=== PATIENT | male | born 1990 | race Caucasian/White ===

== ENCOUNTER 2016-06-05 06:13 | Day surgery (SDC) | payer OTHER ==
[2016-06-05] MEDS ORDERED: LACTATED RINGERS 1,000 ML ONE (06:29)
[2016-06-05] MEDS ORDERED: IV START KIT ONE ×2 (06:30→07:13)
[2016-06-05] MEDS ORDERED: PROPOFOL 60 ML IV ONE (07:05)
[2016-06-05] MEDS ORDERED: LACTATED RINGERS 1,000 ML IV SCH (07:45)
[2016-06-05 11:49] LABS: HELICOBACTER PYLORII DETECTION NEGATIVE (NEGATIVE)
--- NOTE | 2016-06-07 13:00 | SURGPATH ---
[facility] [address] [place] [id number] Patient Name: PB CHOU MR#: [id number] : 1990 Gender: M Specimen #: [id number] Collected: 06/05/2016 Received: 06/06/2016 Reported: 06/07/2016 Submitting Phys: TOMASA ALTAMIRANO Copy To Phys: DONATO GUNN [facility] Clinical History / Pre-Operative Diagnosis: Nausea; vomiting; diarrhea Specimen Source / Surgical Procedure Performed: #1-duodenal biopsy; #2-antral biopsy; #3-terminal ileum biopsy; #4-random colon biopsy Interpretation: 1. DUODENUM, BIOPSY: - SMALL BOWEL MUCOSA SHOWING NO DIAGNOSTIC ABNORMALITIES. - NO EVIDENCE OF SIGNIFICANT INFLAMMATION, VILLOUS BLUNTING, OR MALIGNANCY. 2. GASTRIC ANTRUM, BIOPSY: - GASTRIC MUCOSA SHOWING NO DIAGNOSTIC ABNORMALITIES. - NO MICROORGANISMS IDENTIFIED WITH ROUTINE STAINING. - NO EVIDENCE OF SIGNIFICANT INFLAMMATION, INTESTINAL METAPLASIA, OR MALIGNANCY. 3. TERMINAL ILEUM, BIOPSY: - SMALL BOWEL MUCOSA SHOWING NO DIAGNOSTIC ABNORMALITIES. - NO EVIDENCE OF SIGNIFICANT INFLAMMATION, VILLOUS BLUNTING, OR MALIGNANCY. 4. COLON, RANDOM, BIOPSY: - COLONIC MUCOSA SHOWING NO DIAGNOSTIC ABNORMALITIES. - NO EVIDENCE OF SIGNIFICANT INFLAMMATION OR MALIGNANCY. Electronically Signed Out Demarco Vargas M.D., Ph.D. Gross Description: #1 The specimen is received in a formalin filled container labeled with the patient's name and "duodenal biopsy". Two hollis biopsies are 0.3 and 0.4 cm. Totally embedded in cassette #1. #2 The specimen is received in a formalin filled container labeled with the patient's name and "antral biopsy". Two polypoid hollis biopsies are 0.4 and 0.5 cm. Totally embedded in cassette #2. #3 The specimen is received in a formalin filled container labeled with the patient's name and "terminal ileum biopsy". Two hollis biopsies are each 0.3 cm. Totally embedded in cassette #3. #4 The specimen is received in a formalin filled container labeled with the patient's name and "random colon biopsy". Multiple hollis biopsies are 0.2-0.4 cm. Totally embedded in cassette #4. Jag Grey, P.A. Microscopic Description: 1. Examination of multiple levels from the duodenum biopsy shows multiple fragments of histologically unremarkable small bowel mucosa. The villous architecture is intact without evidence of blunting. There is no evidence of significant inflammation or malignancy. 2. Examination of multiple levels from the gastric antrum biopsy shows two fragments of histologically unremarkable gastric mucosa. The lamina propria is not expanded. No microorganisms are seen with routine staining. There is no evidence of significant inflammation, intestinal metaplasia, or malignancy. 3. Examination of multiple levels from the terminal ileum biopsy shows two fragments of histologically unremarkable small bowel mucosa. The villous architecture is intact without evidence of blunting. There is no evidence of significant inflammation or malignancy. 4. Examination of multiple levels from the random colon biopsy shows multiple fragments of histologically unremarkable colonic mucosa. The architecture is intact without evidence of distortion. There is no evidence of significant inflammation or malignancy. 1: [id number] 2: [id number] 3: 91059 4: 57972 R11.0 R11.10 R19.7
== END 2016-06-05 08:10 | disposition home or self-care (01) ==
LOC: SDC 06:13
PROVIDERS: ATTEND Surgery
PROC: 0DBB8ZX Excision of Ileum, Via Natural or Artificial Opening Endoscopic, Diagnostic (ICD-10-PCS; principal; 2016-06-05)
PROC: 0DBN8ZX Excision of Sigmoid Colon, Via Natural or Artificial Opening Endoscopic, Diagnostic (ICD-10-PCS; 2016-06-05)
PROC: 0DBM8ZX Excision of Descending Colon, Via Natural or Artificial Opening Endoscopic, Diagnostic (ICD-10-PCS; 2016-06-05)
PROC: 0DBL8ZX Excision of Transverse Colon, Via Natural or Artificial Opening Endoscopic, Diagnostic (ICD-10-PCS; 2016-06-05)
PROC: 0DBK8ZX Excision of Ascending Colon, Via Natural or Artificial Opening Endoscopic, Diagnostic (ICD-10-PCS; 2016-06-05)
DX: K52.9 Noninfective gastroenteritis and colitis, unspecified (principal); R11.2 Nausea with vomiting, unspecified
CPT/HCPCS: 45380; 43239; 87081; J7120